=== PATIENT | female | born 1970 | race American Indian/Alaskan Native ===

== ENCOUNTER 2018-10-16 09:49 | Emergency (ER) | payer OTHER, BC ==
[2018-10-16 09:52] VITALS: BMI 25.2
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
[2018-10-16 10:53] VITALS: RESP 18
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
[2018-10-16 14:38] VITALS: BP 138/70; PULSE 86; TEMP 98; O2SAT 99
== END 2018-10-16 14:43 | disposition home or self-care (01) ==
LOC: ED 09:49
DX: S79.911A Unspecified injury of right hip, initial encounter (principal); S89.91XA Unspecified injury of right lower leg, initial encounter; V49.9XXA Car occupant (driver) (passenger) injured in unspecified traffic accident, initial encounter